=== PATIENT | male | born 1985 | race Caucasian/White ===

== ENCOUNTER 2021-04-27 11:58 | Emergency (ER) | payer OTHER, SELFPAY ==
[2021-04-27 12:13] VITALS: BP 114/62; PULSE 102; RESP 14; TEMP 36.8; O2SAT 98
--- NOTE | 2021-04-27 12:14 | ED.GENADULT ---
HPI - General Adult General Chief complaint: Eye Problems Stated complaint: R eye pain after welding Time Seen by Provider: 04/27/21 12:14 History of Present Illness HPI narrative: Patient is a 35-year-old male who comes to the ED today complaining of pain in right eye. Patient reports that 5 days ago he was welding and was using his welding helmet but then he was grinding some metal without eye protection on and noticed pain in his right eye shortly after that. Pain has progressively gotten worse. He has significant photophobia. He is having some purulent drainage. Says that when he is able to open his eye he does not notice any significant visual deficits/disturbances. No issues with left eye. He has no other medical conditions or symptoms or concerns. Related Data Home Medications Medication Instructions Recorded Confirmed cyclobenzaprine 5 mg tablet 5 mg PO ONCE PRN tablet 12/20/20 12/20/20 ibuprofen 600 mg tablet 600 mg PO Q8H PRN tablet 12/20/20 12/20/20 Allergies Allergy/AdvReac Type Severity Reaction Status Date / Time No Known Allergies Allergy Verified 12/20/20 08:06 Review of Systems Constitutional: Constitutional: Reports as per HPI, Denies fever(s), Denies night sweats and Denies weakness Eyes: Eyes: Reports as per HPI Comments: See HPI. Cardiovascular: Cardiovascular: Denies chest pain, Denies edema, Denies leg edema, Denies dyspnea and Denies orthopnea Respiratory: Respiratory: Denies cough and Denies dyspnea Gastrointestinal: Gastrointestinal: Denies abdominal pain, Denies constipation, Denies diarrhea, Denies nausea and Denies vomiting Musculoskeletal: Musculoskeletal: Denies abnormal gait, Denies back pain, Denies numbness and Denies tingling Neurologic: Denies Abnormal speech present, Denies abnormal gait, Denies numbness, Denies tingling and Denies weakness Psychiatric: Psychiatric: Denies homicidal ideation and Denies suicidal ideation [facility] [place] Family History Family History (Updated 12/28/20 @ 08:22 by Viraj Lindo APRN) Mother , Liver cancer Liver cancer Father Healthy adult Social History Social History (Updated 12/28/20 @ 08:23 by Viraj Lindo APRN) Smoking packs per day: 1 Smoking cigarettes per day: 20.0 Years smoked: 10 Smoking pack-years: 10.00 Smoking status: Current every day smoker Alcohol intake: never Substance use: current Substance use type: marijuana Additional occupation/education comments: lawn care Gender identity (if verbalized by the patient): Male Sexual Orientation (if Verbalized by the Patient): Straight or Heterosexual Exam Const: General: cooperative, healthy appearing, comfortable, no acute distress, well developed, alert, awake and Physically active Orientation/consciousness: patient oriented x3 HENMT: Head: normal to inspection, normocephalic and atraumatic Ears: external ears normal General nose exam: Normal external nose present Eyes: Visual Whitman: normal visual whitman by confrontation Eyelids: eyelids normal Conjunctivae: conjunctivae normal and other Pupils: Equal, round and reactive pupils present EOM: EOMs intact bilaterally Other: Right eye: Right conjunctive is injected. There is trace purulent discharge. Right in the middle of the cornea there is a very small metallic foreign body with what looks like a surrounding rust ring. Patient is really guarding his right eye which limits exam. I have to help him open his eye. He is able to read most of the letters on my badge. Neck: Neck: normal visual inspection Chest: Chest palpation & inspection: normal inspection of the chest and no tenderness Resp: Effort & Inspection: normal respiratory effort and able to speak in complete sentences Auscultation: clear to auscultation bilaterally Cardio: Rate: regular rate Rhythm: regular rhythm GI: Inspection: normal to inspection GI Palp: No abdominal tenderness : General: Yes no CVA ten
[2021-04-27] MEDS: TETRACAINE HCL 0.5% OPHTH SOLN 4 ML BTL 1 DROP RIGHT EYE (12:28)
[2021-04-27 15:46] VITALS: BP 104/66; PULSE 83; RESP 16; O2SAT 100
== END 2021-04-27 15:48 | disposition home or self-care (01) ==
PROVIDERS: Emergency Provider Emergency Medicine; PCP Internal Medicine
DX: T15.01XA Foreign body in cornea, right eye, initial encounter (principal); F17.210 Nicotine dependence, cigarettes, uncomplicated
CPT/HCPCS: 65220; 99283

== ENCOUNTER 2024-02-24 14:31 | Emergency (ER) | payer OTHER, MEDICAID, SELFPAY ==
--- NOTE | 2024-02-24 14:40 | ECG_ITS ---
Test Date: 2024-02-24 16:11:40 Measurements Intervals [place] Rate: 75 P: 52 MI: 158 QRS: 64 QRSD: 88 T: 46 QT: 369 QTc: 415 Interpretive Statements SINUS RHYTHM NORMAL ECG No previous ECG available for comparison Electronically Signed On 02-24-2024 16:39:07 CDT by [place] Melo D.O.
[2024-02-24 14:41] VITALS: BP 117/71; PULSE 104; RESP 16; TEMP 37.3; O2SAT 98
--- NOTE | 2024-02-24 14:41 | ED.GENADULT ---
HPI - General Adult General Chief complaint: Psychiatric Symptoms Stated complaint: SI History of Present Illness HPI narrative: 38-year-old male present to the emergency department for evaluation for suicidal ideation. Patient states that this has been worsening over the last few days. Patient states that he did have access to a firearm, was found with bullets on his person, patient states that his intent was to use the bullets himself. Patient states he is not take any medications with the intent of self-harm, patient denies any alcohol use today. Patient denies any other actions of self-harm. Patient states he has had previous thoughts of suicide but denies any prior inpatient psychiatric hospitalization. Related Data Home Medications Medication Instructions Recorded Confirmed cyclobenzaprine 5 mg tablet 5 mg PO ONCE PRN 12/20/20 12/20/20 ibuprofen 600 mg tablet 600 mg PO Q8H PRN 12/20/20 12/20/20 Allergies Allergy/AdvReac Type Severity Reaction Status Date / Time No Known Allergies Allergy Verified 12/20/20 08:06 Review of Systems Review of Systems: All systems reviewed & are unremarkable except as noted in HPI and below PMFSH Family History Family History (Updated 12/28/20 @ 08:22 by Viraj Lindo APRN) Mother , Liver cancer Liver cancer Father Healthy adult Social History Social History (Updated 12/28/20 @ 08:23 by Viraj Lindo APRN) Smoking packs per day: 1 Smoking cigarettes per day: 20.0 Years smoked: 10 Smoking pack-years: 10.00 Smoking status: Current every day smoker Alcohol intake: never Substance use: current Substance use type: does not use Living arrangements: with family Occupation/Education: occupation Additional occupation/education comments: lawn care Gender identity (if verbalized by the patient): Male Sexual Orientation (if Verbalized by the Patient): Straight or Heterosexual Exam Narrative: APPEARANCE: Well appearing, no pain, no distress, well-nourished. HEAD: normocephalic, atraumatic. EYES: PERRLA/EOMI, conjunctivae clear. NOSE: Normal no drainage EARS:TMS clear with good light reflex. THROAT: Pharynx clear, no exudate. NECK: Supple. No adenopathy, no masses. RESPIRATORY: Airway patent, respirations nonlabored. Clear to auscultation bilaterally, no rales, rhonchi, wheezing. CARDIOVASCULAR: Regular rate and rhythm without murmurs rubs or gallops. ABDOMINAL: Soft, nontender, nondistended, normal bowel sounds MUSCULOSKELETAL: Moves all extremities. Strength/ROM intact, No edema, No calf tenderness. NEURO: Alert. Cranial nerves II through XII intact. Grossly intact SKIN: Warm, dry. Normal Color Psychiatric: Flat affect Course Vital Signs Vital signs: Vital Signs Temperature 99.2 F 02/24/24 14:41 Pulse Rate 104 H 02/24/24 14:41 Respiratory Rate 16 02/24/24 14:41 Blood Pressure 117/71 02/24/24 14:41 Pulse Oximetry 98 02/24/24 14:41 Oxygen Delivery Room Air 02/24/24 14:41 Temperature 99.2 F 02/24/24 14:41 Pulse Rate 66 02/24/24 20:10 Respiratory Rate 15 02/24/24 20:10 Blood Pressure 100/68 02/24/24 20:10 Pulse Oximetry 94 02/24/24 20:10 Oxygen Delivery Room Air 02/24/24 14:41 Medical Decision Making MDM Narrative Medical decision making narrative: 38-year-old male presents emergency department for evaluation for suicidal ideation. Patient is medically cleared to be evaluated by crisis. Patient is medically cleared for transport and inpatient psychiatric hospitalization as needed. Patient may statements to social media stating that he was going to kill himself. Vital Signs Vital Signs: Vital Signs Temperature 99.2 F 02/24/24 14:41 Pulse Rate 104 H 02/24/24 14:41 Respiratory Rate 16 02/24/24 14:41 Blood Pressure 117/71 02/24/24 14:41 Pulse Oximetry 98 02/24/24 14:41 Oxygen Delivery Room Air 02/24/24 14:41 Temperature 99.2 F
[2024-02-24 15:09] LABS: Basophils Absolute Auto 0.1 K/mm3 (0.0-0.1); Basophils Percent Auto 0.7 % (0.2-1.2); Eosinophils Absolute Auto 0.3 K/mm3 (0-0.3); Eosinophils Percent Auto 3.6 % (0-4.4); Hematocrit 38.3 % (42.0-52.0); Hemoglobin 12.8 g/dL (14.0-18.0); Immature Granulocyte Absolute 0.02 K/mm3 (0.00-0.031); Immature Granulocyte Percent A 0.3 % (0-0.5); Lymphocytes Absolute Auto 2.17 K/mm3 (0.9-3.2); Lymphocytes Percent Auto 28.6 % (18.3-44.2); Mean Corpuscular HGB Conc 33.4 g/dl (32-36); Mean Corpuscular Hemoglobin 30.8 pg (26-34); Mean Corpuscular Volume 92.1 fl (80-100); Mean Platelet Volume 9.2 fl (7.4-10.4); Monocytes Absolute Auto 0.5 K/mm3 (0.1-0.6); Neutrophils Absolute Auto 4.6 K/mm3 (1.3-6.7); Neutrophils Percent Auto 59.8 % (45.5-73.1); Platelet Count Result 315 k/mm3 (150-375); Red Blood Count 4.16 M/mm3 (4.6-6.20); Red Cell Distribution Width 13.2 % (11.5-14.5); White Blood Count 7.6 K/mm3 (4.5-10.0)
[2024-02-24 15:23] LABS: Alanine Aminotransferase 20 U/L (6-50); Albumin Level 3.9 g/dL (3.5-5.1); Alkaline Phosphatase 71 U/L (38-126); Anion Gap 7 mmol/L (4-12); Aspartate Amino Transferase 26 U/L (17-59); Bilirubin,Total 0.4 mg/dL (0.2-1.3); Blood Urea Nitrogen 14 mg/dL (9-20); Calcium 8.5 mg/dL (8.4-10.2); Carbon Dioxide 29 mmol/L (22-30); Chloride 100 mmol/L (98-107); Estimated Glomerular Filt Rate > 60; Glucose 105 mg/dL (65-110); Potassium 3.4 mmol/L (3.4-5.0); Sodium 136 mmol/L (137-145)
[2024-02-24 15:28] LABS: Acetaminophen < 10 ug/mL (10-30); Ethanol < 10 mg/dL (<10); Salicylate < 1.0 mg/dL (2-20)
[2024-02-24 15:48] LABS: Influenza A QL RT-PCR Negative (Negative); Influenza B QL RT-PCR Negative (Negative); RSV RNA, RT-PCR Negative (Negative); SARS-CoV-2 RNA PCR Negative (Negative)
[2024-02-24 15:54] LABS: Thyroid Stimulating Hormone 0.405 uIU/mL (0.465-4.680)
[2024-02-24 17:23] LABS: Barbiturate Screen Urine Negative (Negative); Benzodiazepines Screen Urine Negative (Negative)
[2024-02-24 17:29] LABS: Appearance Urine Turbid (Clear); Bacteria Urine None Seen /hpf; Bilirubin Urine Negative (Negative); Blood Urine Negative (Negative); Color Urine Yellow (Yellow); Glucose Urine UA Negative (Negative); Hyaline Casts Urine Present /lpf; Ketones Urine Trace mg/dL (Negative); Leukocyte Esterase Ur Negative LEU/UL (Negative); Nitrate Urine Negative (Negative); Protein Urine Trace mg/dL (Negative); RBC Urine 0-2 /hpf (0-2); Specific Grav Ur 1.038 (1.001-1.035); Squamous Epithelial Cell Urine None Seen /hpf (Few); WBC Urine 0-5 /hpf (0-3); pH Urine 5.5 (5.0-9.0)
[2024-02-24 17:30] LABS: Add Urine Microscopic? YES
[2024-02-24 17:43] LABS: Cannabinoid Screen Urine Negative (Negative); Cocaine Screen Urine Negative (Negative); Methadone Screen Urine Negative (Negative); Opiate Screen Urine Negative (Negative); Phencyclidine Screen Urine Negative (Negative)
[2024-02-24 17:56] LABS: Amphetamine Screen Urine Positive (Negative)
--- NOTE | 2024-02-24 19:43 | PC.NURSE ---
Assumed care of pt from ROBERT Sims at this time. Crisis done evaluating pt. Plan is to place pt as involuntary.
[2024-02-24 20:10] VITALS: BP 100/68; PULSE 66; RESP 15; O2SAT 94
--- NOTE | 2024-02-24 20:15 | PC.NURSE ---
Gillian from [facility] called for triage questions. Gillian requested to speak to patient. Pt repeatedly stated he did not feel like speaking to anyone at this time. Gillian updated. Will call back after speaking w jillian GILMAN.
--- NOTE | 2024-02-24 22:39 | PC.NURSE ---
Transport to be here in next hour. pt going to room 5333-A at [facility] admitted by Dr. Garza. Report called to ROBERT Ash.
== END 2024-02-24 23:16 ==
PROVIDERS: Emergency Provider Emergency Medicine; PCP Internal Medicine
DX: R45.851 Suicidal ideations (principal); Z20.822 Contact with and (suspected) exposure to COVID-19; F17.210 Nicotine dependence, cigarettes, uncomplicated
CPT/HCPCS: 36415; 80053; 80307; 81001; 84443; 85025; 87637; 93005; 99285